=== PATIENT | female | born 1975 | race Caucasian/White ===

== ENCOUNTER → 2019-11-24 | Outpatient (CLI) | payer OTHER | LOC: COL.RAD 12:15 | DX: M48.061 Spinal stenosis, lumbar region without neurogenic claudication (principal); M47.816 Spondylosis without myelopathy or radiculopathy, lumbar region; M47.817 Spondylosis without myelopathy or radiculopathy, lumbosacral region ==

== ENCOUNTER → 2019-12-06 | Outpatient (CLI) | payer OTHER | LOC: MHCPAIN 09:13 | DX: M47.817 Spondylosis without myelopathy or radiculopathy, lumbosacral region (principal); M54.6 Pain in thoracic spine; M54.5 Low back pain; G89.29 Other chronic pain; F17.210 Nicotine dependence, cigarettes, uncomplicated | CPT/HCPCS: G0463 ==

== ENCOUNTER 2021-01-18 07:51 | Emergency (ER) | payer OTHER ==
[~2021-01-18] VITALS: Ht 154.9 cm; Wt 68.2 kg
[2021-01-18 08:08] VITALS: BP 130/83; PULSE 87
== END 2021-01-18 10:04 | disposition home or self-care (01) ==
LOC: COL.ER 07:51
DX: S09.90XA Unspecified injury of head, initial encounter (principal); S99.921A Unspecified injury of right foot, initial encounter; F17.210 Nicotine dependence, cigarettes, uncomplicated; W20.8XXA Other cause of strike by thrown, projected or falling object, initial encounter